=== PATIENT | female | born 1990 | race Two or more races ===

== ENCOUNTER 2023-06-05 08:35 | Outpatient (REF) | payer SELFPAY ==
[2023-06-05 14:22] LABS: MANUAL DIFF FLAG NO
[2023-06-05 14:32] LABS: Basophils Percent Auto 0.3 % (0-2); Eosinophils Absolute Auto 0.1 X10*3/uL (0.0-0.4); Eosinophils Percent Auto 1.8 % (0-4); Hematocrit 40.3 % (37.0-47.0); Hemoglobin 12.9 g/dl (12.0-16.0); Imm Gran Abs Auto 0.03 X10*3/uL (0.00-0.03); Imm Gran Pct Auto 0.4 % (0.0-0.4); Lymphocytes Absolute Auto 1.9 X10*3/uL (1.2-4.9); Lymphocytes Percent Auto 25.8 % (20-40); Mean Corpuscular Hemoglobin 28.7 pg (27.0-33.0); Mean Corpuscular Volume 89.6 fL (80.0-98.0); Mean Platelet Volume 10.7 fL (9.4-12.3); Monocytes Absolute Auto 0.5 X10*3/uL (0.1-1.2); Monocytes Percent Auto 7.3 % (2-11); Neutrophils Absolute Auto 4.6 x10*3/uL (2.0-8.3); Neutrophils Percent Auto 64.4 % (45-73); Platelet Count 283 X10*3/uL (160-400); Red Cell Distribution Width 12.9 % (11.0-16.0); White Blood Count 7.2 X10*3/uL (4.8-10.8)
[2023-06-05 16:00] LABS: Alanine Aminotransferase 16 U/L (0-31); Alkaline Phosphatase 65 U/L (39-117); Anion Gap 13 (12-20); Aspartate Amino Transferase 17 U/L (5-31); Bilirubin Total 0.4 mg/dL (0.0-1.0); Blood Urea Nitrogen 9 mg/dL (9-16); Carbon Dioxide 26 mmol/L (22-29); Chloride 104 mmol/L (96-108); Cholesterol 168 mg/dL; Estimated Glomerular Filt Rate > 60; Glucose Fasting 77 mg/dL (60-99); HDL Cholesterol 57 mg/dL; LDL Cholesterol Calculated 94 mg/dl; Sodium 139 mmol/L (135-145); Total Protein 7.5 g/dL (6.5-8.0); Triglycerides 85 mg/dL
== END 2023-06-05 08:36 | disposition home or self-care (01) ==
LOC: HO.CHCLDS 08:35
PROVIDERS: Visit Provider Family Medicine
DX: Z13.9 Encounter for screening, unspecified (principal)
CPT/HCPCS: 36415; 80053; 80061; 85025

== ENCOUNTER 2024-06-22 08:03 | Outpatient (REF) | payer MEDICAID, SELFPAY ==
[2024-06-22 08:16] LABS: MANUAL DIFF FLAG NO
[2024-06-22 09:02] LABS: Basophils Percent Auto 0.2 % (0-2); Eosinophils Absolute Auto 0.2 X10*3/uL (0.0-0.4); Eosinophils Percent Auto 2.1 % (0-4); Hematocrit 40.8 % (37.0-47.0); Hemoglobin 13.4 g/dl (12.0-16.0); Imm Gran Abs Auto 0.04 X10*3/uL (0.00-0.03); Imm Gran Pct Auto 0.5 % (0.0-0.4); Lymphocytes Absolute Auto 2.1 X10*3/uL (1.2-4.9); Lymphocytes Percent Auto 26.3 % (20-40); Mean Corpuscular HGB Conc 32.8 g/dl (31.0-35.0); Mean Corpuscular Hemoglobin 28.3 pg (27.0-33.0); Mean Corpuscular Volume 86.3 fL (80.0-98.0); Mean Platelet Volume 9.8 fL (9.4-12.3); Monocytes Absolute Auto 0.5 X10*3/uL (0.1-1.2); Neutrophils Absolute Auto 5.3 x10*3/uL (2.0-8.3); Neutrophils Percent Auto 64.9 % (45-73); Platelet Count 326 X10*3/uL (160-400); Red Blood Count 4.73 X10*6/uL (4.20-5.50); White Blood Count 8.1 X10*3/uL (4.8-10.8)
[2024-06-22 09:30] LABS: Alanine Aminotransferase 45 U/L (0-31); Albumin Level 4.1 g/dL (3.5-5.0); Alkaline Phosphatase 100 U/L (39-117); Anion Gap 12 (12-20); Aspartate Amino Transferase 27 U/L (5-31); Bilirubin Total 0.5 mg/dL (0.0-1.0); Blood Urea Nitrogen 10 mg/dL (9-16); Calcium 9.6 mg/dL (8.4-10.2); Carbon Dioxide 29 mmol/L (22-29); Chloride 103 mmol/L (96-108); Cholesterol 218 mg/dL (<200); Estimated Glomerular Filt Rate > 60; Glucose Random 104 mg/dL (60-115); HDL Cholesterol 63 mg/dL (>40); LDL Cholesterol Calculated 135 mg/dL (<100); Potassium 3.7 mmol/L (3.3-5.1); Sodium 140 mmol/L (135-145); Total Protein 7.8 g/dL (6.5-8.0); Triglycerides 100 mg/dL (<150)
[2024-06-22 09:46] LABS: TSH reflex Free T4 0.88 uIU/mL (0.32-4.0)
[2024-06-22 09:59] LABS: Folate 10.7 ng/mL (> or = 4.0); Vitamin B12 795 pg/mL (200-900)
== END 2024-06-22 08:04 | disposition home or self-care (01) ==
LOC: HO.LAB 08:03
PROVIDERS: PCP Family Medicine; Visit Provider Family Medicine
DX: Z00.00 Encounter for general adult medical examination without abnormal findings (principal); R25.2 Cramp and spasm
CPT/HCPCS: 36415; 80053; 80061; 82607; 82746; 84443; 85025

== ENCOUNTER 2025-06-24 10:58 | Outpatient (REF) | payer MEDICAID, SELFPAY ==
--- OUTSIDE RECORDS SUMMARY | 2025-06-23 09:30 | XMS_ITS | Encounter Summary ---
Author Organization [facility] Address [address] [facility] [address] [place] [address] Care Team Providers Care Air Pollution Compliance Inspector Name Role Phone Dilia Owens MD Primary Care Provider [phone] Reason for Referral * Imaging (Routine) - Authorized Specialty Diagnoses / Procedures Referred By Michael t Referred To Contact Radiology Diagnoses Mastalgia Procedures BI Mammogram Diagnostic Tomosynthesis Bilateral Dilia Owens MD [address] [place] [address] Phone: tel: fax: [address] Phone: tel: fax: Referral ID Status Reason Start Date Expiration Date V isits Requested Visits Authorized [id number] Authorized 06/23/2025 06/23/2026 1 1 * Consultation (Routine) - Authorized Specialty Diagnoses / Procedures Referred By Contac t Referred To Contact Nutrition Diagnoses Overweight Dilia Owens MD [address] [place] [address] Phone: tel: fax: Referral ID Status Reason Start Date Expiration Date Visits Requested Visits Authorized [id number] Authorized Consult and Treat 06/23/2025 06/23/2026 1 1 * Consultation (Routine) - Authorized Specialty Diagnoses / Procedures Referred By Contac t Referred To Contact Midwifery Diagnoses Mastalgia Dilia Owens MD [address] [place] [address] Phone: tel: fax: Coreen Fox, [facility] [address] [place] [address] Phone: tel: fax: Referral ID Status Reason Start Date Expiration Date Visits Requested Visits Authorized [id number] Authorized Consult and Treat 06/23/2025 06/23/2026 1 1 Reason for Visit * Reason Comments Annual Exam Encounter Details Date Type Department Care Team ([facility] Contact Info) Description 06/23/2025 9:30 AM EDT Office Visit [facility] [address] [place] [address] Dilia Owens MD [address] [place] [address] Mastalgia (Primary Dx); Dietary counseling; Exercise counseling; Overweight; Annual physical exam Social History Tobacco Use Types Packs/Day Years Used Date Smoking Tobacco: Never Passive Smoke Exposure: Never Smokeless Tobacco: Never Alcohol Use Standard Drinks/Week Comments Never 0 (1 standard drink = 0.6 oz pur e alcohol) Depression Answer Date Recorded Patient Health Questionnaire-9 Score 9 06/23/2025 Patient Health Questionnaire-9 Score 9 06/23/2025 Last PHQ-9: Questionnaire Data Not on file 0 06/23/2025 Housing Stability Answer Date Recorded What is your housing situation today? I have fernando sing 06/11/[address] you li ve. Do you have problems with any of the following? None of the above 06/11/2024 Food Insecurity Answer Date Recorded Within the past 12 months, y ou worried that your food would run out before you got money to buy more: Never True 06/11/2024 Within the past 12 months,th e food you bought just didn't last and you didn't have enough money to get more: Never True Transportation Answer Date Recorded In the past 12 months, has l ack of transportation kept you from medical appts, meetings, work or from getting things needed for daily living? No 06/11/2024 Utilities Answer Date Recorded In the past 12 months, has t he electric, gas, oil or water company threatened to shut off services in your home? No 06/11/2024 Depression Answer Date Recorded Patient Health Questionnaire-2 Score 3 06/23/2025 Internet Access Answer Date Recorded Internet Access Q1 Yes 07/01/2024 Internet Access Q2 Not on file 07/01/2024 Comments No Sex and Gender Information Value Date Recorded Sex Assigned at Female 08/29/2022 10:22 AM EDT Legal Sex Female 10:22 AM EDT Gender Identity Female 08/29/2022 10:22 AM EDT Sexual Orientation Straight 08/29/2022 10 :22 AM EDT documented as of this encounter Last Filed Vital Signs Vital Sign Reading Time Taken Comments Blood Pressure 106/74 06/23/2025 9:56 AM EDT Pulse 70 06/23/2025 9:27 AM EDT Temperature 37 C (98.6 F) 06/23/2025 9:27 AM EDT Respiratory Rate 20 06/23/2025 9:27 AM EDT Oxygen Saturation 98% 06/23/2025 9:27 AM EDT Inhaled Oxygen Concentration - - Weight 81.1 kg (178 lb 12.8 oz) 06/23/2025 9:27 AM EDT Height 165.1 cm (5' 5 ) 06/23/2025 10:0 4 AM EDT Body Mass Index 29.75 06/23/2025 9:27 AM EDT documented in this encounter Functional Status * Over the past 2 weeks, how often have you been bothered by any of the following problems? Question Answer Date of Assessment Author Patient Health Questionnaire -2 Score 3 06/23/2025 9:40 AM EDT Dilia Owens MD * Little interest or pleasure in doing things Answer Date of Assessment Author More than half the days 06/23/2025 9:40 AM EDT Dilia Lloyd MD * Feeling down, depressed, or hopeless Answer Date of Assessment Author Several days 06/23/2025 9:40 AM EDT Shima Owens MD * Trouble falling or staying asleep, or sleeping too much Answer Date of Assessment Author Several days 06/23/2025 9:40 AM Shima Aguilar MD * Feeling tired or having little energy Answer Date of Assessment Author More than half the days 06/23/2025 9:40 AM Dilia Peña MD * Poor appetite or overeating Answer Date of Assessment Author Several days 06/23/2025 9:40 AM Shima Aguilar MD * Feeling bad about yourself - or that you are a failure or have let yourself or your family down Answer Date of Assessment Author Several days 06/23/2025 9:40 AM Shima Aguilar MD * Trouble concentrating on things, such as reading the newspaper or watching television Answer Date of Assessment Author Several days 06/23/2025 9:40 AM Shima Aguilar MD * Moving or speaking so slowly that other people could have noticed? Or the opposite - being so fidgety or restless that you have been moving around a lot more than usual. Answer Date of Assessment Author Not at all 06/23/2025 9:40 AM Shima Aguilar MD * Thoughts that you would be better off or hurting yourself in some way Answer Date of Assessment Author Not at all 06/23/2025 9:40 AM Shima Aguilar MD * Patient Health Questionnaire-9 Score Answer Date of Assessment Author 9 06/23/2025 9:40 AM Shima Aguilar MD * How difficult have these problems made it for you to do your work, take care of things at home, or get along with other people? Answer Date of Assessment Author Somewhat difficult 06/23/2025 9:40 AM Dilia Aguilar MD documented as of this encounter Progress Notes * Dilia Owens MD - 06/23/2025 9:30 AM EDT Subjective Patient ID: Barb Steele is a 35 y.o. female who presents for Annual Exam. History of Present Illness Barb Steele is a female patient with a history of anxiety presenting with multiple concerns including desire for weight loss, breast pain, and need for gynecological follow-up. She reports being overweight and expresses a desire to lose weight. The patient had a mass removed from her right breast two years ago and has been experiencing breast pain for a few weeks, which she believes may be related to her menstrual cycle. The patient's breast pain has been ongoing for a few weeks, localized to both breasts. She does notmention any specific aggravating or alleviating factors, nor does she describe the character or severity of the pain. The patient suggests a possible association with her menstrual cycle but does notprovide further details. Regarding her gynecological care, the patient reports that her last Pap smear was performed last year when her imaging center manager retired. She expresses a need to find a new imaging center manager for follow-up care. The patient mentions a recent healthcare interaction for constipation at [facility]. She was prescribed fiber pills, which she reports have been helpful in managing her symptoms. In terms of treatment adherence, the patient discusses potential weight loss medications, noting that her insurance does not cover these. She is considering options such as phentermine with Topamax or Wellbutrin with naltrexone, and is aware of potential side effects associated with each medication. Medical History - Anxiety - Overweight - Mass removed from right breast Surgical History - Mass removal from right breast two years ago Medications and Supplements - Fiber pills - Taken for constipation, helped with symptoms Social History - Insurance: [facility] - Pharmacy: [facility] Review of Systems General: Positive for desire to lose weight. HEENT: Positive for breast pain. Gastrointestinal: Positive for history of constipation, improved with fiber pills. Review of Systems Constitutional: Negative for activity change, appetite change, fatigue, fever and unexpected weightchange. HENT: Negative for congestion, nosebleeds, rhinorrhea and sore throat. Eyes: Negative for pain, discharge and itching. Respiratory: Negative for apnea and shortness of breath. Cardiovascular: Negative for chest pain, palpitations and leg swelling. Gastrointestinal: Positive for constipation. Negative for abdominal distention, abdominal pain, diarrhea and nausea. Endocrine: Negative for polyuria. Genitourinary: Negative for dysuria and urgency. Musculoskeletal: Negative for arthralgias, back pain and myalgias. Skin: Negative for rash. Neurological: Negative for dizziness and headaches. Objective Visit Vitals BP 106/74 (BP Location: Left arm, Patient Position: Sitting, BP Cuff Size: Adult) Pulse 70 Temp 98.6 ??F (37 ??C) (Oral) Resp 20 Ht 5' 5 (1.651 m) Wt 178 lb 12.8 oz (81.1 kg) LMP (LMP Unknown) SpO2 98% BMI 29.75 kg/m?? OB Status Having periods Smoking Status Never BSA 1.93 m?? Physical Exam Exam conducted with a fern cutter present. Constitutional: General: She is not in acute distress. Appearance: Normal appearance. She is normal weight. She is not ill-appearing. HENT: Head: Normocephalic and atraumatic. Right Ear: Tympanic membrane, ear canal and external ear normal. Left Ear: Tympanic membrane, ear canal and external ear normal. Nose: Nose normal. Mouth/Throat: Lips: [place]. No lesions. Mouth: Mucous membranes are moist. Pharynx: Oropharynx is clear. Uvula midline. Eyes: General: Lids are normal. Extraocular Movements: Extraocular movements intact. Conjunctiva/sclera: Conjunctivae normal. Cardiovascular: Rate and Rhythm: Regular rhythm. Pulses: Radial pulses are 2+ on the right side and 2+ on the left side. Dorsalis pedis pulses are 2+ on the right side and 2+ on the left side. Posterior tibial pulses are 2+ on the right side and 2+ on the left side. Heart sounds: No murmur heard. Pulmonary: Effort: Pulmonary effort is normal. Breath sounds: Normal breath sounds. Chest: Chest wall: No mass, lacerations or deformity. Breasts: Breasts are symmetrical. Right: Tenderness present. No swelling, bleeding, inverted nipple, mass or nipple discharge. Left: Tenderness present. No swelling, bleeding, inverted nipple or nipple discharge. Abdominal: General: Abdomen is flat. Bowel sounds are normal. Palpations: Abdomen is soft. Tenderness: There is no abdominal tenderness. There is no right CVA tenderness or left CVA tenderness. Hernia: No hernia is present. Musculoskeletal: Right shoulder: Normal. Left shoulder: Normal. Right upper arm: Normal. Left upper arm: Normal. Cervical back: Normal and full passive range of motion without pain. Normal range of motion. Thoracic back: Normal. Normal range of motion. Lumbar back: Normal. Normal range of motion. Right hip: Normal. Normal range of motion. Left hip: Normal. Normal range of motion. Right knee: Normal. Normal range of motion. Left knee: Normal. Normal range of motion. Right lower leg: No edema. Left lower leg: No edema. Lymphadenopathy: Cervical: No cervical adenopathy. Upper Body: Right upper body: No supraclavicular, axillary or pectoral adenopathy. Left upper body: No supraclavicular, axillary or pectoral adenopathy. Skin: General: Skin is warm. Capillary Refill: Capillary refill takes less than 2 seconds. Neurological: General: No focal deficit present. Mental Status: She is alert. Cranial Nerves: Cranial nerves 2-12 are intact. Deep Tendon Reflexes: Reflexes are normal and symmetric. Psychiatric: Behavior: Behavior is cooperative. Assessment/Plan Problem List Items Addressed This Visit Annual physical exam 35 y.o. female here for annual physical examination Reviewed BMI and BP with patient. Nutritional recommendations: Recommended to decrease soda and sugary beverage consumption. Recommended at least 20 g per meal of protein to assist with satiety. Exercise recommendations: Recommended at least 150 min/week of moderate intensity exercise. BH screen done and reviewed Care Gaps reviewed IZ reviewed and discussed w/ patient Updated/reviewed PMH, Surghx, Family Hx & Social Hx Overweight Discussed calorie deficit, recommended reduction of 20-30% of maintenance calories; chemistry physics teacher referral offered. Recommended to decrease soda and sugary beverage consumption. Recommended at least 20 g per meal of protein to assist with satiety. Recommended at least 150 min/week of moderate intensity exercise. Discussed side effects of phentermine/topamax with patient. No contraindications. Mechanism of action: Inhibits NE/5HT reuptake & enhances SHAYE activity, glutamate antagonist-> decr appetite, decr food intake - s/e: tachyardia, HTN, tetragenic, cognitive dysfunction, metabolic acidosis, constipation & dysguesia Contraindications: , hx kidney stones, anxiety, hyperthyroidism, MAOI use & glaucoma, atheroscleosis (MO, aneurysm, CVA) Starting dose: Phentermine 15 mg/Topamax 50 mg. Relevant Medications topiramate (Topamax) 50 MG tablet phentermine (Adipex-P) 37.5 MG tablet Other Relevant Orders CBC auto differential Comprehensive Metabolic Panel Lipid Panel, Standard TSH W/Reflex to FT4 Referral to Nutrition Therapy Mastalgia - Primary Will send for diagnotic mammo Relevant Orders Referral to Gynecology (Coreen) BI Mammogram Diagnostic Tomosynthesis Bilateral Other Visit Diagnoses Dietary counseling Relevant Medications topiramate (Topamax) 50 MG tablet phentermine (Adipex-P) 37.5 MG tablet Exercise counseling Relevant Medications topiramate (Topamax) 50 MG tablet phentermine (Adipex-P) 37.5 MG tablet documented in this encounter Miscellaneous Notes * Assessment & Plan Note - Dilia Owens MD - 06/23/2025 10:19 AM EDT Associated Problem(s): Overweight Discussed calorie deficit, recommended reduction of 20-30% of maintenance calories; chemistry physics teacher referral offered. Recommended to decrease soda and sugary beverage consumption. Recommended at least 20 g per meal of protein to assist with satiety. Recommended at least 150 min/week of moderate intensity exercise. Discussed side effects of phentermine/topamax with patient. No contraindications. Mechanism of action: Inhibits NE/5HT reuptake & enhances SHAYE activity, glutamate antagonist-> decr appetite, decr food intake - s/e: tachyardia, HTN, tetragenic, cognitive dysfunction, metabolic acidosis, constipation & dysguesia Contraindications: , hx kidney stones, anxiety, hyperthyroidism, MAOI use & glaucoma, atheroscleosis (MO, aneurysm, CVA) Starting dose: Phentermine 15 mg/Topamax 50 mg. * Assessment & Plan Note - Dilia Owens MD - 06/23/2025 10:18 AM EDT Associated Problem(s): Mastalgia Will send for diagnotic mammo * Assessment & Plan Note - Dilia Owens MD - 06/23/2025 10:18 AM EDT Associated Problem(s): Annual physical exam 35 y.o. female here for annual physical examination Reviewed BMI and BP with patient. Nutritional recommendations: Recommended to decrease soda and sugary beverage consumption. Recommended at least 20 g per meal of protein to assist with satiety. Exercise recommendations: Recommended at least 150 min/week of moderate intensity exercise. screen done and reviewed Care Gaps reviewed IZ reviewed and discussed w/ patient Updated/reviewed PMH, Surghx, Family Hx & Social Hx documented in this encounter Plan of Treatment Upcoming Encounters Date Type Department Care Team (Late st Contact Info) Description 08/04/2025 11:15 AM EDT Office Visit [facility] P[facility] [address] [place] [address] Dilia Owens MD [address] [place] [address] Scheduled Orders Name Type Priority Associated Diagnoses Orde r Schedule CBC auto differential Lab Routine Overweight Expected: 06/23/2025 (Approximate), Expires: 06/23/2026 Comprehensive Metabolic Panel Lab Routine Overweight Expected: 06/23/2025 (Approximate), Expires: 06/23/2026 Lipid Panel, Standard Lab Routine Overweight Expected: 06/23/2025 (Approximate), Expires: 06/23/2026 TSH W/Reflex to FT4 Lab Routine Overweight Expected: 06/23/2025 (Approximate), Expires: 06/23/2026 BI Mammogram Diagnostic Tomosynthesis Bilateral Imaging Routine Mastalgia Expected: 06/23/2025, Expires: 08/23/2026 Scheduled Referrals Name Type Priority Associated Diagnoses Order Schedule Referral to Gynecology (Coreen) Outpatient Referral Routine Mastalgia Expected: 06/23/2025 (Approximate), Expires: 06/23/2026 Referral to Nutrition Therapy Outpatient Referral Routine Overweight Expected: 06/23/2025 (Approximate), Expires: 06/23/2026 documented as of this encounter Visit Diagnoses Diagnosis Mastalgia- Primary Mastodynia Dietary counseling Dietary surveillance and counseling Exercise counseling Overweight Annual physical exam Routine general medical examination at a health care facility documented in this encounter Additional Health Concerns Assessment Noted Time PHQ-9 Depression Total Score: 9 06/23/20 25 9:40 AM EDT documented as of this encounter Care Teams Air Pollution Compliance Inspector Relationship Specialty Start Date End Date Dilia Owens MD [address] [place] [address] PCP - General Family Medicine 08/06/21 documented as of this encounter
--- OUTSIDE RECORDS SUMMARY | 2025-06-24 11:54 | XMS_ITS | Clinical Summary ---
Author Organization [facility] ity Address [address] [place] [address] Care Team Providers Care Automobile Body Repair Chief Name Role Phone Maris Preston Primary Care Pro vider Surgical History Surgery Date Site/Laterality Comments HAND SURGERY 2011 Right PROCEDURE: [place] UNLISTED PROCEDURE HANDS/FINGERS Medical History Medical History Date Comments Lipoma of arm DX:Lipoma of arm Family History Medical History Relation Name Comments Lung cancer Maternal Grandfather Diabetes Maternal Grandmother Allergies Mother htn Relation Name Status Comments Maternal Grandfather Maternal Grandmother Mother Social History Tobacco Use Types Packs/Day Years Used Date Smoking Tobacco: Never Smokeless Tobacco: Never Alcohol Use Standard Drinks/Week Comments No 0 (1 standard drink = 0.6 oz pur e alcohol) Comments Unknown Sex and Gender Information Value Date Recorded Sex Assigned at Not on file Legal Sex Female 4:56 PM EST Gender Identity Not on file Sexual Orientation Not on file Obstetrics History Last Filed Vital Signs Vital Sign Reading Time Taken Comments Blood Pressure 139/79 01/25/2023 2:32 PM EDT Pulse 74 01/25/2023 2:32 PM EDT Temperature - - Respiratory Rate - - Oxygen Saturation - - Inhaled Oxygen Concentration - - Weight 74.1 kg (163 lb 6.4 oz) 01/25/2023 2:32 P M EDT Height - - Body Mass Index - - Plan of Treatment Upcoming Encounters Date Type Department Care Team (Late st Contact Info) Description 07/28/2025 2:00 PM EDT [facility]ointment [facility] [address] [phone] 07/28/2025 2:30 PM EDT Appointment [facility] Ultrasound [address] [place] [phone] Health Maintenance Due Date Last Done Comments DTaP,Tdap,and Td Vaccines (1 - Tdap) 2008 Hepatitis B Vaccines (1 of 3 - 19+ 3-dose series) 2008 Cervical Cancer Screening: P ap Smear 2010 HIV Screening 09/28/2022 Hepatitis C Screening 09/28/2022 Social Influencers of Health Screening 09/28/2022 COVID-19 Vaccine (1 - 2023-2 5 season) 2024 Depression Screening 10/30/2024 Influenza Vaccine (#1) 2025 HIB Vaccines Aged Out No longer eligi ble based on patient's age to complete this topic HPV Vaccines Aged Out No longer eligi ble based on patient's age to complete this topic Hepatitis A Vaccines Aged Out No long er eligible based on patient's age to complete this topic IPV Vaccines Aged Out No longer eligi ble based on patient's age to complete this topic MMR Vaccines Aged Out No longer eligi ble based on patient's age to complete this topic Meningococcal ACWY Vaccine Aged Out N o longer eligible based on patient's age to complete this topic Meningococcal B Vaccine Aged Out No l onger eligible based on patient's age to complete this topic Pneumococcal Vaccine: Pediat rics (0 to 5 Years) and At-Risk Patients (6 to 49 Years) Aged Out No longer eligible b ased on patient's age to complete this topic RSV Immunization Patients Un chitra 20 months Aged Out No longer eligible b ased on patient's age to complete this topic Varicella Vaccines Aged Out No longer eligible based on patient's age to complete this topic Insurance [employer] Care Teams Automobile Body Repair Chief Relationship Specialty Start Date End Date Maris Preston DO PCP - General Internal Medicine 10/15/15
--- OUTSIDE RECORDS SUMMARY | 2025-06-24 11:54 | XMS_ITS | Encounter Summary ---
Author Organization [employer] Address [address] [facility] [address] [place] [address] Care Team Providers Care Engineering Operations Leader Name Role Phone Dilia Owens MD Primary Care Provider Encounter Details Date Type Department Care Team (Latest Contact Info) Description 06/23/2025 Travel Social History Tobacco Use Types Packs/Day Years [...] your housing situation today? I have fernando saez 06/11/[address] you li [...] AM EDT documented as of this encounter Functional Status * Over the past 2 weeks, how often have you been bothered by any of the following problems? Question Answer Date of Assessment Author Patient Health Questionnaire -2 Score 3 06/23/2025 9:40 AM Dilia Aguilar MD * Little interest or pleasure in doing things Answer Date of Assessment Author More than half the days 06/23/2025 9:40 AM Dilia Peña MD * Feeling down, depressed, or hopeless Answer Date of Assessment Author Several days 06/23/2025 9:40 AM Shima Aguilar MD * Trouble falling or staying asleep, [...] Author Not at all 06/23/2025 9:40 AM EDT Shima Owens MD * Thoughts that you would be better off or hurting yourself in some way Answer Date of Assessment Author Not at all 06/23/2025 9:40 AM EDT Shima Owens MD * Patient Health Questionnaire-9 Score Answer Date of Assessment Author 9 06/23/2025 9:40 AM EDT Shima Owens MD * How difficult have these problems made it for you to do your work, take care of things at home, or get along with other people? Answer Date of Assessment Author Somewhat difficult 06/23/2025 9:40 AM EDT Dilia Owens MD documented as of this encounter Plan of Treatment Upcoming Encounters Date Type Department Care Team (Late st Contact Info) Description 08/04/2025 11:15 AM EDT Office Visit [facility] MED & PEDS [address] [place] [address] Dilia Owens MD [address] [place] [address] documented as of this encounter Visit Diagnoses Not on filedocumented in this encounter Additional Health Concerns Assessment Noted Time PHQ-9 Depression Total Score: 9 06/23/20 9:40 AM EDT documented as of this encounter Care Teams Engineering Operations Leader Relationship Specialty Start Date End Date Dilia Owens MD [address] [place] [id number] PCP - General Family Medicine 08/06/21 documented as of this encounter
--- OUTSIDE RECORDS SUMMARY | 2025-06-24 11:54 | XMS_ITS | Clinical Summary ---
Author Organization [employer] Address [address] [facility] [address] [place] [address] Care Team Providers Care Senior System Operator Name Role Phone Dilia Owens MD Primary Care Provider [phone] Allergies No known active allergies Medications cetirizine (ZyrTEC) 10 MG tablet Take 1 tablet by mouth at bed time. 2 Active EPINEPHrine (Epipen) 0.3 MG/0.3ML injection syringe INJECT 1 PEN INJECTOR A SINGLE DOSE NEEDED 2 Active magnesium oxide (Mag-Ox) 400 (240 Mg) MG tablet Take 400 mg by mouth in the morning. 2 Active Sodium Fluoride (PreviDent 5000 Booster Plus) 1.1 % paste Apply 1 Application. to teeth 2 times daily. 112 g 3 4 Active amitriptyline (Elavil) 25 MG tablet TAKE 1 TABLET BY MOUTH AT BEDTIME 90 tablet 1 4 Active pantoprazole (ProtoNix) 20 MG EC tablet Take 1 tablet (20 mg) by mouth Once per day. Do not crush, chew, or split. 90 tablet 1 4 Active Sodium Fluoride (PreviDent 5000 Booster Plus) 1.1 % paste Apply 1 Application. to teeth 2 times daily. 112 g 3 4 Active hydrOXYzine pamoate (Vistaril) 50 MG capsuleIndication s:Anxiety TAKE 1 CAPSULE (50 MG) BY MOUTH EVERY 6 (SIX) HOURS IF NEEDED FOR ANXIETY. 120 capsule 2 5 Active senna (Senokot) 8.6 MG tabletIndications :Constipation, unspecified constipation type Take 1 tablet (8.6 mg) by mouth at bedtime. 120 tablet 5 Active Azelastine HCl 137 MCG/SPRAY solution USE 2 SPRAYS NASALLY TWICE A DAY DIRECTED 4 Active topiramate (Topamax) 50 MG tablet Take 1 tablet (50 mg) by mouth at bedtime. 90 tablet 5 Active phentermine (Adipex-P) 37.5 MG tablet Take 0.5 tablets (18.75 mg) by mouth before breakfast. 14 tablet 2 5 Active Active Problems Problem Noted Date Diagnosed Date Mastalgia 06/23/2025 Assessment & Plan (06/23/2025 10:18 AM EDT): Will send for diagnotic mammo Overweight 06/19/2024 Assessment & Plan (06/23/2025 10:19 AM EDT): Discussed calorie deficit, recommended reduction of 20-30% of maintenance calories; video game engineer referral offered. Recommended to decrease soda and [...] anxiety, hyperthyroidism, MAOI use & glaucoma, atheroscleosis (NH, aneurysm, CVA) Starting dose: Phentermine 15 mg/Topamax 50 mg. Annual physical exam 05/25/2023 Assessment & Plan (06/23/2025 10:18 AM EDT): 35 y.o. female here for annual physical [...] PMH, Surghx, Family Hx & Social Hx Assessment & Plan (06/19/2024 4:35 PM EDT): BP is elevated, recheck 146/90. Ordering lab work for further evaluation. Assessment & Plan (05/25/2023 9:08 AM EDT): Will send labs to recheck levels. Anxiety 11/02/2022 Assessment & Plan (05/25/2023 9:08 AM EDT): Controlled. No currently following with therapist. Reports taking medications as prescribed with no side effects, will refill meds. Assessment & Plan (11/21/2022 4:00 PM EST): Reports side effects with sertraline that are not tolerable but reports that her hydroxyzine has been helpful only taking at bedtime. Assessment & Plan (11/02/2022 2:29 PM EST): Elevated ALLYSON-7, likely PTSD component, requested [facility] specialist to reach out to patient for therapy. I have also send sertraline and hydroxyzine to help with her symptoms and schedule for followup in 2 weeks. Denies hx of sabrina or family hx of bipolar disorder Resolved Problems Problem Noted Date Diagnosed Date Resolved Date Dental calculus 01/03/2024 06/23/2025 Encounters Date Type Department Care Team Description 06/23/2025 9:30 AM EDT Office Visit [facility] [address] [place] [address] Dilia Owens MD Mastalgia (Primary Dx); Dietary counseling; Exercise counseling; Overweight; Annual physical exam 06/23/2025 Travel 06/13/2025 Patient Outreach [facility] [address] [place] [address] Dilia Owens MD Pre-visit Planning (Pre visit planning LVM ) 06/12/2025 Telephone [facility] [address] [place], [place] [id number] Dilia Owens MD chart prep 05/07/2025 7:00 PM EDT Office Visit [facility] [address] [place] [address] Sandra Abrams NP Constipation, unspecified constipation type (Primary Dx); Altered elimination 05/07/2025 Travel 05/07/2025 Telephone [facility] [address] [place] [address] Dilia Owens MD Telephone Call 05/06/2025 Refill [facility] & [facility]EDS [address] [place] [address] Dilia Owens MD Anxiety from Last 3 Months Immunizations Immunization Administration Dates Next Due Moderna Covid-19 Vaccine 12+ 03/20/2021,02/21/20 21 PPD Test 02/02/2015 Tdap 04/18/2023,05/23/2014,07/05/2012 Family History Medical History Relation Name Comments Lung cancer Maternal Grandfather Diabetes type II Maternal Grandmother Hyperlipidemia Mother Hypertension Mother Relation Name Status Comments Maternal Grandfather Maternal Grandmother Mother Social History Tobacco Use Types Packs/Day Years Used Date Smoking Tobacco: Never Passive Smoke Exposure: Never Smokeless Tobacco: Never Tobacco Cessation:Counseling Given: Not Answered Alcohol Use Standard Drinks/Week Comments Never 0 [...] Orientation Straight 08/29/2022 10 :22 AM EDT Last Filed Vital Signs Vital Sign Reading [...] Mass Index 29.75 06/23/2025 9:27 AM EDT Plan of Treatment Upcoming Encounters Date Type Department Care Team ([facility] st Contact Info) Description 08/04/2025 11:15 AM EDT Office Visit [facility] [address] [place] [address] Dilia Owens MD [address] [place] [address] Health Maintenance Due Date Last Done Comments Family Planning (PISQ) 2004 HPV Vaccines (1 - 3-dose series) 2004 Pap Smear 2010 Cervical Cancer Screening 2019 HPV/Cotest 2019 Dental X-Ray: Full Mouth 03/31/2024 03/30/2021 Dental Prophylaxis 07/06/2024 01/03/2024 Dental Oral Exam 11/29/2024 05/28/2024 SDOH Screening 06/11/2025 06/11/2024 Influenza Vaccine (#1) 2025 COVID-19 Vaccine (3 - 2023-2 5 season) 2025 03/20/2021, 02/20/2021 Postponed from 06/30/2024 (Supply/Drug Shortage) Dental X-Ray: Bitewings 11/06/2025 11/05/19, 01/03/2024, 10/19/2023 Mammogram 12/06/2025 12/06/2023, 06/28/2023 Depression Monitoring 12/24/2025 06/23/2025 , 06/23/2025 Alcohol/Substance Use Screening 06/23/2026 06/23/2025 Disability Screening 06/23/2026 06/23/2025 Tobacco Screening 06/23/2026 06/23/2025 DTaP/Tdap/Td Vaccines (4 - T d or Tdap) 04/18/2033 04/18/2023, 05/23/2014, 07/05/2012 Zoster Vaccines (1 of 2) 2039 RSV Patients and Patients Aged 60 years or older (1 - 1-dose 75+ series) 2064 HIV Screening Completed 02/05/2021, 02/05/2021 Hepatitis C Screening Completed 02/05/2021 , 02/05/2021 HIB Vaccines Aged Out No longer eligi ble based on patient's age to complete this topic Hepatitis A Vaccines Aged Out No long er eligible based on patient's age to complete this topic Hepatitis B Vaccines Discontinued IPV Vaccines Aged Out No longer eligi ble based on patient's age to complete this topic Meningococcal B Vaccine Aged Out No l onger eligible based on patient's age to complete this topic Meningococcal Vaccine Aged Out No rosemarie marcelo eligible based on patient's age to complete this topic Pneumococcal Vaccine: Pediatrics (0 to 5 Years) and At-Risk Patients (6 to 49) Years Aged Out No longer eligible b ased on patient's age to complete this topic RSV under 20 months Aged Out No longe r eligible based on patient's age to complete this topic Rotavirus Vaccines Aged Out No longer eligible based on patient's age to complete this topic Procedures Procedure Name Priority Date/Time Associated Diagnosis Comments LAB COLOGUARD COLON CANCER SCREEN Routine 05/14/2025 6:56 AM EDT Altered elimination BITEWING - SINGLE RADIOGRAPHIC IMAGE Routine 11/05/2024 1:00 PM EST Symptomatic irreversible pulpitis PERIODIC ORAL EVALUATION - ESTABLISHED PATIENT Routine 05/28/2024 3:30 PM EDT PROPHYLAXIS - ADULT Routine 01/03/2024 1 1:00 AM EST Dental calculus HM MAMMOGRAPHY Routine 12/06/2023 HEPATITIS C AB W/REFL TO HCV RNA, QN, PCR Routine 02/05/2021 HIV 1/2 ANTIGEN/ANTIBODY, FOURTH GENERATION W/RFL Routine 02/05/2021 from Last 3 Months or Most Recently Relevant to Health Maintenance Results * Cologuard?? colon cancer screening (05/14/2025 6:56 AM EDT) Cologuard Result Negative Negative 05/21/20 12:17 PM EDT [facility] (CLIA #:[id number]) Comment: The Cologuard (TM) test was performed on this specimen. NEGATIVE TEST RESULT. A negative Cologuard result indicates a low likelihood that a colorectal cancer (CRC) or advanced adenoma (adenomatous polyps with more advanced pre-malignant features) is present. The chance that a person with a negative Cologuard test has a colorectal cancer is less than 1 in 1500 (negative predictive value >99.9%) or has an advanced adenoma is less than 5.3% (negative predictive value 94.7%). These data are based on a prospective cross-sectional study of 10,000 individuals at average risk for colorectal cancer who were screened with both Cologuard and colonoscopy. (Kenzie Bynum al, N Engl J Med 2014;370(14):1286- 1297) The normal value (reference range) for this assay is negative. COLOGUARD RE-SCREENING RECOMMENDATION: Periodic colorectal cancer screening is an important part of preventive healthcare for asymptomatic individuals at average risk for colorectal cancer. Following a negative Cologuard result, the [place] [employer] and U.S. Multi-Society Task Force screening guidelines recommend a Cologuard re-screening interval of 3 years. References: [place] [employer] Guideline for Colorectal Cancer Screening: https://www.cancer.org/cancer/sfydb-lsuwdv-zhidab/zjpqnvupj-zqodjdqrp-txggqzu/ac s-rec ommendations.html.; Carlos DK, Radha CR, Linda HurleyK, Colorectal Cancer Screening: Recommendations for Physicians and Patients from the U.S. Multi-Society Task Force on Colorectal Cancer Screening , Am J Gastroenterology 2017; 112:4282-4956. TEST DESCRIPTION: Composite algorithmic analysis of stool DNA-biomarkers with hemoglobin immunoassay. Quantitative values of individual biomarkers are not reportable and are not associated with individual biomarker result reference ranges. Cologuard is intended for colorectal cancer screening of adults of either sex, 45 years or older, who are at average-risk for colorectal cancer (CRC). Cologuard has been approved for use by the U.S. FDA. The performance of Cologuard was established in a cross sectional study of average-risk adults aged 50-84. Cologuard performance in patients ages 45 to 49 years was estimated by sub-group analysis of near-age groups. Colonoscopies performed for a positive result may find as the most clinically significant lesion: colorectal cancer [4.0%], advanced adenoma (including sessile serrated polyps greater than or equal to 1cm diameter) [20%] or non- advanced adenoma [31%]; or no colorectal neoplasia [45%]. These estimates are derived from a prospective cross-sectional screening study of 10,000 individuals at average risk for colorectal cancer who were screened with both Cologuard and colonoscopy. (Kenzie Bynum al, N Engl J Med 2014;370(14):9102-6317.) Cologuard may produce a false negative or false positive result (no colorectal cancer or precancerous polyp present at colonoscopy follow up). A negative Cologuard test result does not guarantee the absence of CRC or advanced adenoma (pre-cancer). The current Cologuard screening interval is every 3 years. ([place] [employer] and U.S. Multi-Society Task Force). Cologuard performance data in a 10,000 patient pivotal study using colonoscopy as the reference method can be accessed at the following location: www.Air[employer].com/results. Additional description of the Cologuard test process, warnings and precautions can be found at www.colPlayEnablerd.com. Stool specimen (specimen) 05/14/2025 6:56 AM EDT 05/15/2025 12:45 PM EDT Sandra Abrams NP LAB MOLECULAR DIAGNOSTICS ORDER ESTEPHANIA Final Result [facility] (CLIA #:[id number]) [address] [place] [address], * Mammography (12/06/2023) Mammogram BIRADS 2 Normal, Abnormal, BIRADS 1 , BIRADS 2 Anatomical Region Laterality Modality Other Historical Provider HEALTH MAINTENANCE Final Result * Hepatitis C Antibody with Reflex to HCV, RNA, Quantitative, Real-Time PCR (02/05/2021) Blood Venous blood specimen / Unknown 02/05/2021 Narrative Dilia Owens MD - 11/01/2022 6:27 PM EST Non-reactive (02/05/21) Historical Provider LAB BLOOD ORDERABLES Yamileth l Result * HIV-1/2 Antigen and Antibodies, Fourth Generation, with Reflexes (02/05/2021) Blood Venous blood specimen / Unknown 02/05/2021 Narrative Dilia Owens MD - 02/05/2021 6:28 PM EDT HIV 4th generation: Non-reactive Historical Provider LAB BLOOD ORDERABLES Yamileth l Result from Last 3 Months or Most Recently Relevant to Health Maintenance Insurance [employer] DENTAL - HSN PARTIAL (MEDICAID) Care Teams Senior System Operator Relationship Specialty Start Date End Date Dilia Owens MD [address] [place] [id number] PCP - General Family Medicine 08/06/21
--- OUTSIDE RECORDS SUMMARY | 2025-06-24 11:54 | XMS_ITS | Encounter Summary ---
Author Organization [employer] Address [address] [facility] [address] [place] [address] Care Team Providers Care Poultry Culler Name Role Phone Dilia Owens MD Primary Care Provider Encounter Details Date Type Department Care Team (Late st Contact Info) Description 06/21/2024 Orders Only [facility] [address] [place] [address] Provider, MD Ray Social History Tobacco Use Types Packs/Day Years Used Date Smoking Tobacco: Never Passive Smoke Exposure: Never Smokeless Tobacco: Never Alcohol Use Standard Drinks/Week Comments Never 0 (1 standard drink = 0.6 oz pur e alcohol) Depression Answer Date Recorded Patient Health Questionnaire-9 Score 5 06/19/2024 Patient Health Questionnaire-9 Score 5 06/19/2024 Last PHQ-9: Questionnaire Data Not on file 0 06/19/2024 Housing Stability Answer Date Recorded What is your housing situation today? I have fernando se 06/11/[address] you li [...] Answer Date Recorded Patient Health Questionnaire-2 Score 2 06/19/2024 Comments No Sex and Gender Information Value Date Recorded Sex Assigned at Female 08/29/2022 10:22 AM EDT Legal Sex Female 10:22 AM EDT Gender Identity Female 08/29/2022 10:22 AM EDT Sexual Orientation Straight 08/29/2022 10 :22 AM EDT documented as of this encounter Plan of Treatment Upcoming Encounters Date Type Department Care Team (Late st Contact Info) Description 08/04/2025 11:15 AM EDT Office Visit [facility] [address] [place] [address] Dilia Owens MD [address] [place] [address] documented as of this encounter Procedures Procedure Name Priority Date/Time Associated Diagnosis Comments SURGICAL PATHOLOGY Routine 06/09/2022 12:37 PM EDT documented in this encounter Results * Surgical Pathology (06/09/2022 12:37 PM EDT) Historical Provider LAB PATHOLOGY ORDERABLES Final Result documented in this encounter Visit Diagnoses Not on filedocumented in this encounter Additional Health Concerns Assessment Noted Time PHQ-9 Depression Total Score: 5 06/19/20 24 3:50 PM EDT documented as of this encounter Care Teams Poultry Culler Relationship Specialty Start Date End Date Dilia Owens MD [address] [place] [address] PCP - General Family Medicine 08/06/21 documented as of this encounter
--- OUTSIDE RECORDS SUMMARY | 2025-06-24 11:54 | XMS_ITS | Encounter Summary ---
Author Organization [facility] Address [address] [place] [address] [address] [place] [address] Care Team Providers Care Section Hand Helper Name Role Phone Dilia Owens MD Primary Care Provider [phone] Reason for Visit * Reason Comments Med Refill Encounter Details Date Type Department Care Team ([facility] Contact Info) Description 11/24/2022 Refill [facility] [address] [place] [address] Dilia Owens MD [address] [place] [address] Anxiety Social History Tobacco Use Types Packs/Day Years Used Date Smoking Tobacco: Never Passive Smoke Exposure: Never Smokeless Tobacco: Never Alcohol Use Standard Drinks/Week Comments Never 0 (1 standard drink = 0.6 oz pur e alcohol) Depression Answer Date Recorded Patient Health Questionnaire-9 Score 4 11/02/2022 Depression Answer Date Recorded Patient Health Questionnaire-2 Score 1 11/02/2022 Comments Unknown Sex and Gender Information Value Date Recorded Sex Assigned at Female 08/29/2022 10:22 AM EDT Legal Sex Female 10:22 AM EDT Gender Identity Female 08/29/2022 10:22 AM EDT Sexual Orientation Straight 08/29/2022 10 :22 AM EDT COVID-19 Exposure Response Date Recorded In the last 10 days, have yo u been in contact with someone who was confirmed or suspected to have Coronavirus/COVID-19? No / Unsure 11/21/2022 3:34 PM EST documented as of this encounter Plan of Treatment Upcoming Encounters Date Type Department Care Team ([facility] Contact Info) Description 08/04/2025 11:15 AM EDT Office Visit [facility] [address] [place] [address] Dilia Owens MD [address] [place] [address] documented as of this encounter Visit Diagnoses Diagnosis Anxiety Anxiety state, unspecified documented in this encounter Additional Health Concerns Assessment Noted Time PHQ-9 Depression Total Score: 4 11/02/19 23 9:13 AM EST documented as of this encounter Care Teams Section Hand Helper Relationship Specialty Start Date End Date Dilia Owens MD [address] [place] [address] PCP - General Family Medicine 08/06/21 documented as of this encounter
--- OUTSIDE RECORDS SUMMARY | 2025-06-24 11:54 | XMS_ITS | Encounter Summary ---
Author Organization [employer] [facility] Address [address] [place] [address] [address] [place] [address] Care Team Providers Care Licensing Engineer Name Role Phone Dilia Owens MD Primary Care Provider [phone] Encounter Details Date Type Department Care Team (Latest Contact Info) Description 09/16/2021 Abstract [facility] CONVERSIONS Dental, Provider, DDS Social History Tobacco Use Types Packs/Day Years Used Date Smoking Tobacco: Never Assessed Comments Unknown Sex and Gender Information Value [...] Description 08/04/2025 11:15 AM EDT Office Visit [facility] PEDS [address] [place] [address] Dilia Owens MD [address] [place] [address] documented as of this encounter Visit Diagnoses Not on filedocumented in this encounter Care Teams Licensing Engineer Relationship Specialty Start Date End Date Dilia Owens MD [address] [place] [id number] PCP - General Family Medicine 08/06/21 documented as of this encounter
[2025-06-24 14:05] LABS: MANUAL DIFF FLAG NO
[2025-06-24 14:21] LABS: Hematocrit 40.5 % (37.0-47.0); Hemoglobin 13.2 g/dl (12.0-16.0); Imm Gran Abs Auto 0.03 X10*3/uL (0.00-0.03); Imm Gran Pct Auto 0.4 % (0.0-0.4); Lymphocytes Absolute Auto 2.4 X10*3/uL (1.2-4.9); Mean Corpuscular HGB Conc 32.6 g/dl (31.0-35.0); Mean Corpuscular Hemoglobin 28.1 pg (27.0-33.0); Mean Corpuscular Volume 86.4 fL (80.0-98.0); NRBC Abs Auto 0.000 X10*3/uL (0.0-0.012); NRBC Pct Auto 0.0 /100WBC (0.0-0.2); Platelet Count 306 X10*3/uL (160-400); Red Blood Count 4.69 X10*6/uL (4.20-5.50); White Blood Count 7.9 X10*3/uL (4.8-10.8)
[2025-06-24 15:04] LABS: Alanine Aminotransferase 16 U/L (0-31); Albumin Level 4.4 g/dL (3.5-5.0); Alkaline Phosphatase 71 U/L (39-117); Anion Gap 12 (12-20); Aspartate Amino Transferase 23 U/L (5-31); Blood Urea Nitrogen 10 mg/dL (9-16); Calcium 9.4 mg/dL (8.4-10.2); Carbon Dioxide 27 mmol/L (22-29); Chloride 103 mmol/L (96-108); Cholesterol 195 mg/dL (<200); Estimated Glomerular Filt Rate > 60; HDL Cholesterol 54 mg/dL (>40); Potassium 4.2 mmol/L (3.3-5.1); Sodium 138 mmol/L (135-145); Total Protein 7.8 g/dL (6.5-8.0); Triglycerides 98 mg/dL (<150)
== END 2025-06-24 10:59 | disposition home or self-care (01) ==
LOC: HO.CHCLDS 10:58
PROVIDERS: Visit Provider Family Medicine
DX: E66.3 Overweight (principal)
CPT/HCPCS: 36415; 80053; 80061; 84443; 85025